=== PATIENT | female | born 1975 | race Caucasian/White ===

== ENCOUNTER 2021-05-18 09:29 | Outpatient (CLI) | payer BC, SELFPAY | END 2021-05-18 09:30 | disposition home or self-care (01) | PROVIDERS: Visit Provider Obstetrics & Gynecology Gynecology | DX: D25.9 Leiomyoma of uterus, unspecified (principal); Z01.818 Encounter for other preprocedural examination | CPT/HCPCS: 36415; 86850; 86900; 86901 ==

== ENCOUNTER 2021-05-21 10:24 | Inpatient (IN) | payer BC, SELFPAY ==
[2021-05-07 14:52] VITALS: BMI 28.3
[2021-05-21] VITALS (13 sets, daily range): BP systolic 92–115; BP diastolic 60–86; PULSE 56–88; RESP 14–18; TEMP 36.3–37.2; O2SAT 89–100; BMI 28.3
--- NOTE | 2021-05-21 06:22 | WPDANESEPPF ---
Anes - Initial Pre Proc Eval Procedure: Operation Date: 05/21/21 07:30 Proposed Procedures p Total Abdominal Hysterectomy, Bilateral Salpingectomy - Mesha Mireles MD Date/Time: 05/21/21 06:22 Surgeon: Mesha Mireles MD Pre Op Diagnosis: fibroids Patient Data Age: 45 Gender: F Height: 1.7 m Weight: 82 kg Allergies Allergy/AdvReac Type Severity Reaction Status Date / Time Sulfa (Sulfonamide Allergy Mild URTICARIA Unverified 05/07/21 15:27 Antibiotics) sulfamethoxazole Allergy Mild URTICARIA Unverified 05/07/21 15:27 trimethoprim Allergy Mild URTICARIA Unverified 05/07/21 15:27 Home Medications Medication Instructions Recorded Confirmed Type alprazolam 0.5 mg PO PRN PRN 05/07/21 05/07/21 History conjugated estrogens [Premarin] 1.25 mg PO DAILY 05/07/21 05/07/21 History escitalopram oxalate 20 mg PO DAILY 05/07/21 05/07/21 History Patient hx anesthesia problems: none Family hx anesthesia problems: none PMFSH Past Medical History Medical History (Updated 05/21/21 @ 06:24 by Maverick Wood MD) Overweight Social History Social History Smoking packs per day: 0.5 Smoking cigarettes per day: 10.0 Years smoked: 17 Smoking pack-years: 8.50 Smoking status: Former smoker Alcohol intake: current Drinks per week: 4 Substance use: never Substance use type: does not use Last use: 2012 Living arrangements: with family Gender identity (if verbalized by the patient): Female Sexual Orientation (if Verbalized by the Patient): Straight or Heterosexual Spiritual care concerns: No Anes - Eval Final PreProcedure Day of Procedure 05/21/21 06:22 Patient weight: overweight Heart: regular rate and rhythm Lungs: clear to auscultation Airway: Mallampati scale class II Neurological: alert and oriented Last oral intake: >/= 8 hours ASA classification: II Emergent: no Anesthetic plan: proceed Anesthesia type and monitoring: general ETT and standard monitoring Informed Consent: The patient's anesthetic plan and its attendant risks and benefits were discussed with the patient/family/POA. Questions were solicited and answers provided to the satisfaction of the patient/family/POA.
[2021-05-21] MEDS: ACETAMINOPHEN 500 MG TABLET 1000 MG PO (06:48)
[2021-05-21] MEDS: KETOROLAC 15 MG/ML VIAL (*BKC) IV PUSH (06:49)
[2021-05-21] MEDS: LACTATED RINGERS 1,000 ML 30 ML IV CONT ×2 (06:51→08:57)
--- NOTE | 2021-05-21 07:17 | PM.IMHP ---
H&P: HPI History of Present Illness Date/Time: 05/21/21 07:17 45 yo with symptomatic fibroid uterus. Bleeding has been controlled with IUD but patient reports constant pelvic pressure. She reports constipation and bladder pressure. No other complaints. Patient has decided to proceed with definitive treatment via hysterectomy. Plan BARBARA-BS. Risks of infection, bleeding, injury to internal organs (prerna. bowel, bladder, ureters, and ovaries), DVT, and general anesthesia. Agrees to proceed. Questions answered. Chief Complaint: symptomatic fibroid uterus Review of Systems Constitutional: Constitutional: Reports fatigue Gastrointestinal: Gastrointestinal: Reports constipation Psychiatric: Psychiatric: Reports anxiety [facility] Past Medical History Medical History (Updated 05/21/21 @ 07:24 by Mesha Mireles MD) Anxiety Depression Interstitial cystitis (normal spontaneous vaginal delivery) x 2 Overweight Surgical History Surgical History (Updated 05/21/21 @ 07:22 by Mesha Mireles MD) History of bladder suspension procedure 2007 Social History Social History Smoking packs per day: 0.5 Smoking cigarettes per day: 10.0 Years smoked: 17 Smoking pack-years: 8.50 Smoking status: Former smoker Alcohol intake: current Drinks per week: 4 Substance use: never Substance use type: does not use Last use: 2012 Living arrangements: with family Gender identity (if verbalized by the patient): Female Sexual Orientation (if Verbalized by the Patient): Straight or Heterosexual Spiritual care concerns: No Meds Home Medications and Allergies Home Medications Medication Instructions Recorded Confirmed Type alprazolam 0.5 mg PO PRN PRN 05/07/21 05/21/21 History conjugated estrogens [Premarin] 1.25 mg PO DAILY 05/07/21 05/21/21 History escitalopram oxalate 20 mg PO DAILY 05/07/21 05/21/21 History Allergies Allergy/AdvReac Type Severity Reaction Status Date / Time Sulfa (Sulfonamide Allergy Mild URTICARIA Verified 05/21/21 06:31 Antibiotics) sulfamethoxazole Allergy Mild URTICARIA Verified 05/21/21 06:31 trimethoprim Allergy Mild URTICARIA Verified 05/21/21 06:31 Vital Signs Vital Signs - 24 hr 05/21/21 06:45 Temperature 97.4 F L Pulse Rate 76 Respiratory Rate 16 Blood Pressure 102/82 Pulse Oximetry 98 Exam Const: General: healthy appearing and alert Orientation/consciousness: patient oriented x3 Resp: Effort & Inspection: normal respiratory effort Auscultation: clear to auscultation bilaterally Cardio: Rate: regular rate Rhythm: regular rhythm GI: GI Palp: Yes Soft to palpation, No Tenderness to palpation present (GI) and No Palpable mass present : External Female Exam: normal external appearance Speculum Exam - Vagina: normal appearance of the vagina and normal vaginal discharge Speculum Exam - Cervix: normal appearance of the cervix Bimanual exam- vagina & uterus: enlarged (12 weeks with 6 cm exophytic fibroid and several other fibroids) Bimanual Exam- Adnexa, other: normal adnexae and No adnexal tenderness Neuro: General: patient oriented x3 Assessment and Plan Assessment and plan (1) Fibroid uterus: Code(s): D25.9 - Leiomyoma of uterus, unspecified Status: Acute Assessment and Plan: plan to proceed with BARBARA-BS
--- NOTE | 2021-05-21 07:25 | WPDHPUPDATE1 ---
History and Physical Update Update Date/Time: 05/21/21 07:25 History and Physical has been reviewed, including an updated exam of the patient. There are NO changes in the patient's condition. Risks, benefits, and alternatives have been discussed and questions answered. Patient agrees to proceed with procedure.
[2021-05-21] MEDS: ceFAZolin 2 GM/D5W 50 ML 2 GM/50 ML BAG IVPB (07:33)
--- NOTE | 2021-05-21 08:45 | P.OP_ITS ---
Procedure Note - Detailed Date of Procedure 05/21/21 Pre-op Diagnosis fibroids Post-op Diagnosis same Procedure Performed Total abdominal hysterectomy bilateral salpingectomy Surgeon Mesha Mireles MD Anesthesia general Findings enlarged fibroid uterus; normal-appearing tubes and ovaries; small corpus lut eum on left ovary; omentum adherent to calcified fibroid on the left and to the posterior fundus Description of Procedure the patient was taken to the operating room and placed under anesthesia in the dorsal supine position. She was prepped and draped in the usual sterile fashion. A Pfannenstiel skin incision was made with a scalpel and carried down to the underlying layer of fascia which was nicked in the midline. The fascial incision was extended laterally using Bermudez scissors. The bleeding vessels in the subcutaneous tissue was were cauterized. The fascial edges were grasped with Ochsners tented and the rectus muscle using sharp and blunt dissection. The rectus muscles were in the midline. The peritoneum was tented and entered bluntly. The incision is extended with blunt traction. The bowel was packed away using moist laparotomy sponges and the munira retractor placed. The uterus is grasped on the cornu with large Peons. The round ligaments are doubly ligated, transected, and the anterior leaf of the broad ligament incised meeting in the midline. The window was created in the posterior leaf of the broad ligament and the utero-ovarian ligament clamped transected and suture ligated with 0 Vicryl. The left tube mesosalpinx was clamped transected and the tube excised. The right tube was able to be incorporated on the specimen side with the utero-ovarian ligament clamping. The uterine vessels are skeletonized, clamped transected, and suture ligated with 0 Vicryl. The cardinal and uterosacral ligaments were serially clamped, transected, and suture ligated with 0 Vicryl. The uterosacral ligaments were tagged for future use. The vaginal cuff was entered bilaterally on the last clamp. The vaginal cuff is grasped with Allis clamps and the specimen amputated. The vaginal cuff was closed using 0 Vicryl in a running locked fashion. The angles were tied to the ipsilateral uterosacral ligaments. The pelvis was irrigated and pedicles are all inspected and noted to be hemostatic. The vaginal cuff was hemostatic. The sponges and instruments were removed. The fascia was closed using 0 Vicryl in a running fashion. The subcutaneous tissues are irrigated noted to be hemostatic. The skin is closed using 4 0 Vicryl in a subcuticular fashion. Sponge, needle, and instrument counts are correct per the OR staff. The patient did receive Ancef prior to skin incision. The patient is awakened from anesthesia and taken to recovery in stable condition. Estimated Blood Loss 50 Drains Yes (pierce) Packing No Pathology yes (uterus and tubes) Complications No immediate complications Condition stable Disposition PACU
--- NOTE | 2021-05-21 08:55 | PM.DS ---
DS: Admitting Diagnosis Admitting Diagnosis Admitting Diagnosis: fibroid uterus DS: Discharge Diagnosis Discharge Diagnosis (1) Fibroid uterus: Code(s): D25.9 - Leiomyoma of uterus, unspecified Status: Acute (2) S/P BARBARA (total abdominal hysterectomy): Code(s): Z90.710 - Acquired absence of both cervix and uterus Status: Acute DS: Summary Hospital Course Hospital Course: The patient is tolerating a regular diet, voiding, and ambulating at the time of discharge. Status at Discharge Functional status at discharge: independent ambulation Overall status at discharge: patient is progressing back to baseline Time Spent with Patient Time attestation: Total time spent providing and/or coordinating discharge services: Time spent: Less than 30 minutes Discharge Plan Discharge Attending physician on discharge: Mesha Mireles Consulting providers: Aime De Oliveira Discharging Clinician: Aime De Oliveira Patient Disposition: Home, Self-Care Activity: may drive after 2 weeks and pelvic rest Diet: regular Wound Care Instructions: incision open to air Discharge Instructions: Some Complications to Watch for: ? Excessive incisional or vaginal drainage (more than on pad an hour). Additional Instructions: ? Expect some vaginal spotting for 2-4 days. ? Nothing vaginally (i.e. douching, intercourse, tampons) until follow up visit. Patient Instructions: Hysterectomy (DC) Stand Alone Forms: General Discharge Instructions Follow-up/Referrals: Mesha Mireles MD [Physician] - 1 Week Discharge Medications: New hydrocodone-acetaminophen 5-325 mg Tablet 1 tablet PO Q3H PRN (Reason: Pain Rated 5 Or Less) Qty: 20 RF: 0 Continued alprazolam 0.5 mg tablet 0.5 mg PO PRN PRN (Reason: Anxiety) RF: 0 escitalopram oxalate 20 mg tablet 20 mg PO DAILY RF: 0 Premarin 1.25 mg Tablet 1.25 mg PO DAILY RF: 0 Date of admission: 05/21/21 10:24 Primary Care Provider: PHYSICIAN NOT ON STAFF,NONSTAFF Admitting Provider: Mesha Mireles Attending physician on admission: Mesha Mireles Condition: Stable
[2021-05-21] MEDS: fentaNYL CITRATE INJ (*CRX) 100 MCG/2 ML VIAL 25 MCG IV PUSH ×8 (09:16→10:01)
[2021-05-21] MEDS: HYDROcodone/acetaminophen (*CRX) 10-325 MG TABLET 1 TAB PO ×4 (11:03→23:22)
[2021-05-21] MEDS: DEXTROSE 5%/LACTATED RINGERS 1,000 ML 125 ML IV CONT ×2 (11:06→17:40)
[2021-05-21] MEDS: HYDROcodone/acetaminophen (*CRX) 5-325 MG TABLET 1 TAB PO (13:59)
[2021-05-21] MEDS: KETOROLAC 30 MG/ML VIAL (*BKC) IV PUSH ×2 (14:00→19:56)
[2021-05-21] MEDS: ONDANSETRON INJ 4 MG/2 ML VIAL IV PUSH (16:54)
[2021-05-21] MEDS: DOCUSATE SODIUM 100 MG CAPSULE PO (16:57)
[2021-05-21] MEDS: SIMETHICONE 80 MG TAB.CHEW PO (16:57)
[2021-05-21] MEDS: ESTROGENS, CONJUGATED 0.625 MG TABLET 1.25 MG PO (19:57)
[2021-05-21] MEDS: ESCITALOPRAM OXALATE 10 MG TABLET 20 MG PO (19:58)
[2021-05-21] MEDS: ALPRAZolam (*CRX) 0.5 MG TABLET PO (20:02)
[2021-05-22] MEDS: KETOROLAC 30 MG/ML VIAL (*BKC) IV PUSH ×4 (02:03→22:43)
[2021-05-22] MEDS: HYDROcodone/acetaminophen (*CRX) 10-325 MG TABLET 1 TAB PO ×3 (04:41→12:57)
[2021-05-22 05:00] VITALS: BP 74/44; PULSE 59; RESP 16; TEMP 36.7; O2SAT 100
[2021-05-22 05:56] LABS: Basophils Percent Auto 0.1 % (0.2-1.2); Eosinophils Percent Auto 0.1 % (0-4.4); Hematocrit 32.4 % (37.0-47.0); Hemoglobin 10.5 g/dL (12.0-15.0); Immature Granulocyte Absolute 0.04 K/mm3 (0.00-0.031); Immature Granulocyte Percent A 0.4 % (0-0.5); Lymphocytes Absolute Auto 2.06 K/mm3 (0.9-3.2); Lymphocytes Percent Auto 20.7 % (18.3-44.2); Mean Corpuscular HGB Conc 32.4 g/dl (32-36); Mean Corpuscular Hemoglobin 28.5 pg (26-34); Mean Corpuscular Volume 87.8 fl (80-100); Mean Platelet Volume 9.6 fl (7.4-10.4); Monocytes Absolute Auto 0.9 K/mm3 (0.1-0.6); Monocytes Percent Auto 9.3 % (2.6-8.5); Neutrophils Absolute Auto 6.9 K/mm3 (1.3-6.7); Neutrophils Percent Auto 69.4 % (45.5-73.1); Platelet Count Result 218 k/mm3 (150-375); Red Blood Count 3.69 M/mm3 (4.2-5.4); Red Cell Distribution Width 12.5 % (11.5-14.5)
--- NOTE | 2021-05-22 07:52 | PM.GYNPNOP ---
PHOTO PRINTER - A/P Postoperative Procedures: Procedures Operation Date: 05/21/21 07:30 Actual Procedure Side Surgeon p Total Abdominal Hysterectomy, Bilateral Salpingectomy Bilateral Mesha Mireles MD Postoperative day: 1 Postoperative status: doing well Postoperative plan: routine post-op care Time Spent With Patient Time: Total time spent is greater than 50% in coordination of care (as documented) at patient's floor/unit and/or counseling patient: Time with patient: less than 15 minutes PHOTO PRINTER- PN:Subj Post-Op Subjective Date/time seen: 05/22/21 07:52 Subjective: patient reports feeling better and pain is well controlled Exam Narrative: Exam Narrative: inc c/d/i abdomen soft, nt PHOTO PRINTER - PN: Obj Data Vital Signs Vital Signs: Vital Signs - 24 hr 05/21/21 08:57 05/21/21 09:10 05/21/21 09:25 Temperature 97.3 F L Pulse Rate 63 56 L 66 Respiratory Rate 18 18 18 Blood Pressure 96/76 L 102/72 101/74 Pulse Oximetry 97 99 97 05/21/21 09:40 05/21/21 09:45 05/21/21 09:55 Temperature Pulse Rate 66 88 Respiratory Rate 18 14 Blood Pressure 99/86 L 100/71 Pulse Oximetry 97 89 L 97 05/21/21 10:10 05/21/21 10:20 05/21/21 10:30 Temperature 98.1 F Pulse Rate 64 66 73 Respiratory Rate 14 16 16 Blood Pressure 92/74 L 105/70 105/70 Pulse Oximetry 97 96 94 05/21/21 12:00 05/21/21 22:22 05/21/21 23:22 Temperature 98 F 98.9 F 97.9 F Pulse Rate 66 71 60 Respiratory Rate 16 16 16 Blood Pressure 115/75 105/71 96/60 L Pulse Oximetry 95 99 05/22/21 05:00 Temperature 98.1 F Pulse Rate 59 L Respiratory Rate 16 Blood Pressure 74/44 L Pulse Oximetry 100 Intake/Output Intake/Output: Intake & Output 05/19/21 05/20/21 05/21/21 05/22/21 23:59 23:59 23:59 23:59 Intake Total 1890 450 Output Total 675 1350 Balance 1215 -900 Meds/Results Medications: Active Medications Generic Name Dose Route Start Last Admin Trade Name Freq PRN Reason Stop Dose Admin Hydrocodone Bitart/Acetaminophen 1 tab 05/21/21 10:24 05/21/21 13:59 Hydrocodone/Acetaminophen (*Crx) 5-325 Mg Tablet PO 1 tab Q3H PRN Administration Pain Rated 5 or Less Hydrocodone Bitart/Acetaminophen 1 tab 05/21/21 10:24 05/22/21 04:41 Hydrocodone/Acetaminophen (*Crx) 10-325 Mg Tablet PO 1 tab Q3H PRN Administration Pain Rated 6 or Greater Alprazolam 0.5 mg 05/21/21 10:24 05/21/21 20:02 Alprazolam (*Crx) 0.5 Mg Tablet PO 0.5 mg PRN PRN Administration Anxiety Docusate Sodium 100 mg 05/21/21 16:10 05/21/21 16:57 Docusate Sodium 100 Mg Capsule PO 100 mg Q12H PRN Administration Constipation Escitalopram Oxalate 20 mg 05/21/21 10:24 05/21/21 19:58 Escitalopram Oxalate 10 Mg Tablet PO 20 mg DAILY YASMEEN Administration Estrogens Conjugated 1.25 mg 05/21/21 10:30 05/21/21 19:57 Estrogens, Conjugated 0.625 Mg Tablet PO 1.25 mg DAILY YASMEEN Administration Dextrose/Lactated Ringer's 1,000 mls @ 125 mls/hr 05/21/21 10:24 05/21/21 17:40 Dextrose 5%/Lactated Ringers IV CONT 125 mls/hr .Q8H YASMEEN Administration Ibuprofen 600 mg 05/21/21 10:24 Ibuprofen 600 Mg Tablet PO Q6H PRN Cramping Ketorolac Tromethamine 30 mg 05/21/21 10:24 05/22/21 02:03 Ketorolac 30 Mg/Ml Vial (*Bkc) IV PUSH 05/26/21 10:25 30 mg Q6H PRN Administration Pain Rated 4-6 Ondansetron HCl 4 mg 05/21/21 10:24 05/21/21 16:54 Ondansetron Inj 4 Mg/2 Ml Vial IV PUSH 4 mg Q6H PRN Administration Nausea Simethicone 80 mg 05/21/21 10:24 05/21/21 16:57 Simethicone 80 Mg Tab.Chew PO 80 mg Q2H PRN Administration Gas Labs CBC & Chem 7: 05/22/21 04:46 Labs: Laboratory Results - last 24 hr 05/22/21 04:46 WBC 10.0 RBC 3.69 L Hgb 10.5 L Hct 32.4 L MCV 87.8 MCH 28.5 MCHC 32.4 RDW 12.5 Plt Count 218 MPV 9.6 Immature Gran % (Auto) 0.4 Neut % (Auto) 69.4 Lymph % (Auto) 20.7 [place] % (Auto) 9.3
[2021-05-22 07:55] VITALS: BP 96/64; PULSE 65; RESP 16; TEMP 36.9; O2SAT 97
--- NOTE | 2021-05-22 08:00 | P.PNAN_ITS ---
Anes - Prog Note Post-Op Date/Time: 05/22/21 08:00 Cardiovascular status: normal Respiratory status: normal Airway patency: baseline Mental status: baseline Post-Op hydration status: normal Vital Signs: Last Vital Signs Temp 98.1 F 05/22/21 05:00 Pulse 59 L 05/22/21 05:00 Resp 16 05/22/21 05:00 BP 74/44 L 05/22/21 05:00 Pulse Ox 100 05/22/21 05:00 Pain Score (VAS): 4 I/O: Intake & Output 05/21/21 05/22/21 05/22/21 23:59 07:59 15:59 Intake Total 1240 450 Output Total 350 1350 Balance 890 -900 Laboratory Tests 05/22/21 04:46 05/22/21 04:46 WBC 10.0 RBC 3.69 L Hgb 10.5 L Hct 32.4 L MCV 87.8 MCH 28.5 MCHC 32.4 RDW 12.5 Plt Count 218 MPV 9.6 Immature Gran % (Auto) 0.4 Neut % (Auto) 69.4 Lymph % (Auto) 20.7 [place] % (Auto) 9.3 H Eos % (Auto) 0.1 Baso % (Auto) 0.1 L Lymph # (Auto) 2.06 [place] # (Auto) 0.9 H Eos # (Auto) 0.0 Baso # (Auto) 0.0 Abs Immat Gran (auto) 0.04 H Absolute Neuts (auto) 6.9 H Absolute Nucleated RBC 0.0 Nucleated RBC % 0.0 Patient Feedback: Patient satisfied with anesthetic care.
[2021-05-22] MEDS: SIMETHICONE 80 MG TAB.CHEW PO ×3 (08:57→16:29)
[2021-05-22 09:00] VITALS: PULSE 65; RESP 16; O2SAT 97
[2021-05-22 09:50] VITALS: TEMP 36.9
[2021-05-22] MEDS: DOCUSATE SODIUM 100 MG CAPSULE PO (16:29)
[2021-05-22] MEDS: HYDROcodone/acetaminophen (*CRX) 5-325 MG TABLET 1 TAB PO ×2 (16:29→19:50)
[2021-05-22 16:30] VITALS: BP 88/56; PULSE 72; RESP 14; TEMP 36.7; O2SAT 96
[2021-05-22] MEDS: ALPRAZolam (*CRX) 0.5 MG TABLET PO (19:50)
[2021-05-22] MEDS: ESTROGENS, CONJUGATED 0.625 MG TABLET 1.25 MG PO (19:51)
[2021-05-22] MEDS: ESCITALOPRAM OXALATE 10 MG TABLET 20 MG PO (19:51)
[2021-05-22 20:04] VITALS: BP 100/63; PULSE 64; RESP 16; TEMP 36.9; O2SAT 98
[2021-05-23] MEDS: HYDROcodone/acetaminophen (*CRX) 5-325 MG TABLET 1 TAB PO ×2 (04:14→08:30)
--- NOTE | 2021-05-23 07:45 | PM.OBPNVD ---
OB - PN: Subj Subjective Date/time seen: 05/23/21 07:45 doing okay reports still having some pain OB - PN: Obj Data Labs CBC & Chem 7: 05/22/21 04:46 OB - PN A/P Assessment and Plan (1) S/P BARBARA (total abdominal hysterectomy): Code(s): Z90.710 - Acquired absence of both cervix and uterus Status: Acute Assessment and Plan: continue with post op medications will d/c home. Time Spent With Patient Time: Total time spent is greater than 50% in coordination of care (as documented) at patient's floor/unit and/or counseling patient: Exam Narrative: Exam Narrative: abdomen soft incision c/d/i
[2021-05-23] MEDS: IBUPROFEN 600 MG TABLET PO (08:31)
[2021-05-23] MEDS: DOCUSATE SODIUM 100 MG CAPSULE PO (08:31)
[2021-05-23 08:35] VITALS: BP 109/79; PULSE 65; RESP 16; TEMP 36.8; O2SAT 96
[2021-05-23] MEDS: ALPRAZolam (*CRX) 0.5 MG TABLET PO (08:36)
[2021-05-23] MEDS: SIMETHICONE 80 MG TAB.CHEW PO (08:36)
== END 2021-05-23 15:18 | disposition home or self-care (01) | DRG 743 ==
LOC: ANHOB2 10:32
PROVIDERS: Admitting Provider Obstetrics & Gynecology Gynecology; Visit Provider Obstetrics & Gynecology Gynecology
PROC: 0UT94ZZ Resection of Uterus, Percutaneous Endoscopic Approach (ICD-10-PCS; principal; 2021-05-21 07:30)
DX: D25.9 Leiomyoma of uterus, unspecified (principal); F41.9 Anxiety disorder, unspecified; F32.9 Major depressive disorder, single episode, unspecified; Z87.891 Personal history of nicotine dependence
CPT/HCPCS: 36415; 85025; 88307; A9270; J0690; J1100; J1170; J1885; J2250; J2405; J2704; J2710; J3010; J7120; J7121